=== PATIENT | female | born 2005 | race Hispanic/Latino ===

== ENCOUNTER 2024-04-08 11:16 | Emergency (ER) | payer SELFPAY ==
[~2024-04-08] VITALS: Ht 162.6 cm; Wt 47.2 kg
--- NOTE | 2024-04-08 12:20 | HMCIMG ---
US ABDOMINAL RUQ\E\LTD HISTORY: Adominal Pain TECHNIQUE: US ABDOMINAL RUQ\E\LTD. FINDINGS: LIVER: The liver demonstrates normal echogenicity without focal lesions. GALLBLADDER: No gallstone or wall thickening is seen. CBD: Measures up to 0.3cm. PANCREAS: The visualized pancreas appears within normal limits. RIGHT KIDNEY: measures 10.8cm in length. No hydronephrosis or calculi. IMPRESSION: No gallstone is seen.
[2024-04-08] MEDS: ondanSETRON 4MG INJ IVP ONE (13:10)
[2024-04-08] MEDS: 0.9%NACL 1000ML 1,000 ML IV ONE (13:10)
[2024-04-08] MEDS: PANTOPrazole 40 MG/VIAL IVP ONE (13:10)
[2024-04-08 13:31] LABS: BASOPHILS # (AUTO) 0.03 K/uL (0.00-0.20); BASOPHILS % (AUTO) 0.2 % (0.0-5.0); HEMATOCRIT 34.1 % (36-48); IMMATURE GRANULOCYTE ABSOLUTE 0.06 K/uL (0-1); LYMPHOCYTES # (AUTO) 0.5 K/uL (1.0-4.8); LYMPHOCYTES % (AUTO) 3.7 % (21.0-51.0); MEAN CORPUSCULAR HEMOGLOBIN 28.6 pg (27.0-33.0); MEAN CORPUSCULAR VOLUME 84.2 fL (80-100); MONOCYTES # (AUTO) 0.5 K/uL (0.1-1.0); MONOCYTES % (AUTO) 3.1 % (3.0-13.0); NEUTROPHILS # (AUTO) 13.6 K/uL (1.8-7.7); NEUTROPHILS % (AUTO) 92.6 % (40.0-77.0); PLATELET COUNT (AUTO) 306 K/uL (130-400); RED BLOOD CELL COUNT(AUTO) 4.05 MIL/uL (4.00-5.50); WHITE BLOOD COUNT (AUTO) 14.7 K/uL (4.8-10.8)
[2024-04-08 14:01] LABS: ALBUMIN 4.4 g/dL (3.5-5.0); BILIRUBIN,TOTAL 0.6 mg/dL (0.2-1.0); CREATININE 0.8 mg/dL (0.5-1.0); POTASSIUM 3.1 mmol/L (3.5-5.1); TOTAL PROTEIN, SERUM 7.7 g/dL (6.0-8.3)
[2024-04-08] MEDS: ketOROlac 30MG VIAL (30MG/ML) IVP ONE (14:19)
--- NOTE | 2024-04-08 14:43 | HMCIMG ---
CT ABDOMEN/PELVIS W/O CONTRAST INDICATION: abd pain TECHNIQUE: CT ABDOMEN/PELVIS W/O CONTRAST. Oral contrast was not given. Coronal and sagittal reformats were performed. CT was performed with one or more of the following dose reduction techniques: Automated exposure control, adjustment of the mA and/or kV according to the patient's size, or use of the iterative reconstruction technique. Comparison: None. FINDINGS: The noncontrast nature this study limits evaluation of abdominal viscera. No pulmonary consolidation or pleural effusion is seen. Liver and gallbladder are within normal limits. The spleen, pancreas, and adrenal glands are within normal limits. There is no hydronephrosis. Distended urinary bladder. Correlate for retention. Questionable left ovarian cyst. Small amount of free pelvic fluid is seen, nonspecific for patient's age. No bowel obstruction identified. Appendix is not clearly visualized limiting evaluation. Correlate clinically. Visualized aorta is normal in caliber. No acute osseous findings. IMPRESSION: 1. Distended urinary bladder. Correlate for retention. 2. Questionable small left ovarian cyst. Small amount of free pelvic fluid is seen, nonspecific for patient's age.
--- NOTE | 2024-04-08 14:53 | NUR ---
PATIENT PROVIDED UA CUP AND INSTRUCTED TO PROVIDE URINE SAMPLE. PATIENT STATES SHE DOES NOT FEEL THE NEED TO GO.
[2024-04-08 15:21] LABS: ADD UA MICROSCOPIC YES; APPEARANCE,URINE TURBID (CLEAR); BILIRUBIN,URINE NEGATIVE (NEGATIVE); COLOR,URINE LIGHT-YELLOW (YELLOW); GLUCOSE, URINE (UA) 70 mg/dL (NEGATIVE); KETONES,URINE 40 mg/dL (NEGATIVE); LEUKOCYTE ESTERASE ,URINE NEGATIVE Leu/uL (NEGATIVE); NITRATE,URINE NEGATIVE (NEGATIVE); OCCULT BLOOD,URINE NEGATIVE (NEGATIVE); PH,URINE 8.5 (5.0-8.0); PROTEIN,URINE 10 mg/dL (NEGATIVE); UROBILINOGEN,URINE 0.2 mg/dL (0.2-1.0)
[2024-04-08] MEDS: PoTASSium BIcarbonate/CIT AC 25 MEQ TABLET.EFF PO ONE (15:23)
[2024-04-08 15:27] LABS: AMPHET/METH SCREEN,URINE NEGATIVE (NEGATIVE); BARBITURATE SCREEN, URINE NEGATIVE (NEGATIVE); BENZODIAZEPINES SCREEN,URINE NEGATIVE (NEGATIVE); CANNABINOID SCREEN,URINE POSITIVE (NEGATIVE); COCAINE SCREEN,URINE NEGATIVE (NEGATIVE); OPIATE SCREEN,URINE NEGATIVE (NEGATIVE); PHENCYCLIDINE SCREEN,URINE NEGATIVE (NEGATIVE)
[2024-04-08 15:28] LABS: BACTERIA,URINE RARE /HPF (None Seen); MUCUS,URINE RARE LPF (None Seen); SQUAMOUS EPITHELIAL CELL,UR RARE /HPF (0-2); UNCLASSIFIED CRYSTAL 8 /HPF (None Seen); YEAST,URINE BUDDING MOD /HPF (None Seen)
[2024-04-08] MEDS ORDERED: ONDA-243 PO (15:43)
--- NOTE | 2024-04-08 15:43 | ERN ---
General Chief Complaint: Abdominal Pain Stated Complaint: STOMACH PAIN, NAUSEA, LIGHT HEADED Time Seen by MD: 11:18 Source: patient History of Present Illness Initial Comments PATIENT IS A 19-YEAR-OLD FEMALE COMING IN TO BE EVALUATED FOR NAUSEOUSNESS AND VOMITING. PER PATIENT SHE HAS BEEN HAVING EPIGASTRIC DISCOMFORT WELL NAUSEA AND VOMITING FOR ABOUT ONE DAY. NO FEVER NO CHILLS. Allergies: Coded Allergies: No Known Drug Allergies (Unverified Allergy, Unknown, 04/08/24) Past Medical History Past Medical History: No Pertinent History Past Surgical History: None Female( History) LMP: Mar 18, 2024 : 0 ROS Dictation CONSTITUTIONAL: NO CHILLS, NO FEVER, NO WEAKNESS, NO DIAPHORESIS, NO MALAISE. HEAD/FACE: NO SIGNS OF TRAUMA. EENT: NO EYE PAIN, NO BLURRED VISION, NO TEARING, NO DOUBLE VISION, NO EAR PAIN, NO EAR DISCHARGE, NO NOSE PAIN, NO NASAL CONGESTION, NO THROAT PAIN, NO THROAT SWELLING, NO MOUTH PAIN. RESPIRATORY: NO COUGH, NO ORTHOPNEA, NO SOB, NO STRIDOR, NO WHEEZING. CARDIOVASCULAR: NO CHEST PAIN, NO EDEMA, NO PALPITATIONS, NO SYNCOPE. GASTROINTESTINAL/ABDOMINAL: NO ABDOMINAL PAIN, NO CONSTIPATION, NO DIARRHEA, NAUSEA, VOMITING. GENITOURINARY: NO ABNORMAL DISCHARGE, NO DYSURIA, NO FREQUENT URINATION, NO HEMATURIA. NO COMPLAINTS OF PAIN IN THE GENITALS. MUSCULOSKELETAL: NO BACK PAIN, NO GOUT, NO JOINT PAIN, NO JOINT SWELLING, NO MUSCLE PAIN, NO MUSCLE STIFFNESS, NO NECK PAIN. INTEGUMENTARY: NO CHANGE IN COLOR, NO CHANGE IN HAIR/NAILS, NO DRYNESS, NO LESION, NO LUMPS, NO RASH. NEUROLOGICAL/PSYCH: NO ANXIETY, NOT DEPRESSED, NO EMOTIONAL PROBLEM, NO HEADAC HE, NO NUMBNESS, NO PRE-EXISTING DEFICIT, NO HISTORY OF SEIZURES, NO TREMORS, NO WEAKNESS. HEMATOLOGIC/LYMPHATIC: NOT ANEMIC, NO HISTORY OF BLOOD CLOTS, NO APPARENT BLEEDING, NO BRUISING, GLANDS NOT SWOLLEN. ALL SYSTEMS NEGATIVE, EXCEPT NOTED. Physical Exam Physical Exam Dictation VITAL SIGNS: REVIEWED. GENERAL APPEARANCE: ALERT, ORIENTED X3, NO ACUTE DISTRESS, OBESE. HEAD AND FACE: NON-TRAUMATIC. EYES: PERRL, PINK CONJUNCTIVAS, EYELID NO TRAUMA, ANTERIOR CHAMBER CLEAR. EARS: PINNAS INTACT AND NO SIGNS OF TRAUMA OR ERYTHEMA. EAR CANALS CLEAR AND NO DISCHARGE. TMS NO ERYTHEMA. NOSE: NO DISCHARGE, NO BLEEDING. OROPHARYNX: MOUTH NORMAL, TEETH NO CARIES, TONGUE PINK. PHARYNX CLEAR, NO ERYTHEMA. TONSILS NO EXUDATES, NO ABSCESSES NOTED. MUCOUS MEMBRANE MOIST. NECK: SUPPLE, NON-TENDER, NO THYROMEGALY, NO MASSES, NO JVD, NO BRUITS. BREAST: DEFERRED. CHEST: NO TENDERNESS, NO CREPITUS, NO PARADOXICAL MOVEMENT, NO RETRACTIONS. LUNGS: CLEAR, WELL-VENTILATED, SYMMETRIC, NO RALES, NO WHEEZING, NO RHONCHI, NO STRIDOR, GOOD BREATH SOUNDS BILATERALLY. HEART: REGULAR RATE, REGULAR RHYTHM, NO MURMUR, NO GALLOPS. VASCULAR: NO PERIPHERAL EDEMA. ABDOMEN: SOFT, POSITIVE BOWEL SOUNDS, NONDISTENDED, NO GUARDING, EPIGASTRIC TENDER, NO REBOUND, NO MASSES NO HEPATOMEGALY, NO SPLENOMEGALY, NO GONZALEZ'S SIGN, NO HERNIAS. RECTAL: DEFERRED. GENITAL: DEFERRED. NEUROLOGICAL: NORMAL SPEECH, GROSS MOTOR FUNCTION INTACT, GROSS SENSORY FUNCTION INTACT. MUSCULOSKELETAL: NECK NONTENDER, FULL RANGE OF MOTION, BACK NONTENDER, FULL RANGE OF MOTION. EXTREMITIES: NONTENDER, FULL RANGE OF MOTION. SKIN: COLOR PINK, DRY, NO TURGOR, NO RASH, NO LACERATIONS, NO ABRASIONS, NO CONTUSIONS. LYMPHATICS: DEFERRED. Results Laboratory and Microbiology Lab and Micro Result Laboratory Tests Test 04/08/24 13:11 04/08/24 15:10 White Blood Count 14.7 K/uL (4.8-10.8) H Red Blood Count 4.05 MIL/uL (4.00-5.50) Hemoglobin 11.6 g/dL (12.0-16.0) L Hematocrit 34.1 % (36-48) L Mean Corpuscular Volume 84.2 fL (80-100) Mean Corpuscular Hemoglobin 28.6 pg (27.0-33.0) Mean Corpuscular Hemoglobin Concent 34.0 g/dL (32.0-36.0) Red Cell Distribution Width 15.0 % (11.0-15.5) Platelet Count 306 K/uL (130-400) Mean Platelet Volume 9.0 fL (7.5-10.5) Immature Granulocyte % (Auto) 0.4 % (0-1) Neutrophils (%) (Auto) 92.6 % (40.0-77.0) H Lymphocytes (%) (Auto) 3.7 % (21.0-51.0) L Monocytes (%) (Auto) 3.1 % (3.0-13.0) Eosinophils (%) (Auto) 0.0 % (0.0-8.0) Basophils (%) (Auto) 0.2 % (0.0-5.0) Neutrophils # (Auto) 13.6 K/uL (1.8-7.7) H Lymphocytes # (Auto) 0.5 K/uL (1.0-4.8) L Monocytes # (Auto) 0.5 K/uL (0.1-1.0) Eosinophils # (Auto) 0.00 K/uL (0.00-0.70) Basophils # (Auto) 0.03 K/uL (0.00-0.20) Absolute Immature Granulocyte (auto 0.06 K/uL (0-1) Nucleated Red Blood Cells 0.0 % (0.0-0.19) Sodium Level 139 mmol/L (136-145) Potassium Level 3.1 mmol/L (3.5-5.1) L Chloride Level 102 mmol/L (101-111) Carbon Dioxide Level 25 mmol/L (21-32) Blood Urea Nitrogen 8 mg/dL (7-18) Creatinine 0.8 mg/dL (0.5-1.0) Glomerular Filtration Rate Calc 107 mL/min (>90) Random Glucose 140 mg/dL (70-105) H Total Calcium 9.4 mg/dL (8.5-10.1) Total Bilirubin 0.6 mg/dL (0.2-1.0) Aspartate Amino Transf (AST/SGOT) 19 U/L (10-37) Alanine Aminotransferase (ALT/SGPT) 17 U/L (12-78) Alkaline Phosphatase 61 U/L (50-136) Total Creatine Kinase 107 U/L (21-232) Troponin I High Sensitivity < 4 ng/L (4-50) L Total Protein 7.7 g/dL (6.0-8.3) Albumin 4.4 g/dL (3.5-5.0) Lipase 23 U/L (16-77) Human Chorionic Gonadotropin, Quant 0 mIU/mL (0-5) Urine Color LIGHT-YELLOW (YELLOW) Urine Appearance TURBID (CLEAR) Urine pH 8.5 (5.0-8.0) H Urine Specific [place] 1.016 (1.001-1.031) Urine Protein 10 mg/dL (NEGATIVE) H Urine Glucose (UA) 70 mg/dL (NEGATIVE) H Urine Ketones 40 mg/dL (NEGATIVE) H Urine Occult Blood NEGATIVE (NEGATIVE) Urine Nitrate NEGATIVE (NEGATIVE) Urine Bilirubin NEGATIVE mg/dL (NEGATIVE) Urine Urobilinogen 0.2 mg/dL (0.2-1.0) Urine Leukocyte Esterase NEGATIVE Lorenzo/uL Urine RBC 2-5 /HPF (0-1) H Urine WBC 11-25 /HPF (0-1) H Urine Squamous Epithelial Cells RARE /HPF (0-2) Urine Other Crystals (Auto) 8 /HPF (None Seen) Urine Bacteria RARE /HPF (None Seen) Urine Yeast MOD /HPF (None Seen) Urine Opiates Screen NEGATIVE (NEGATIVE) Urine Barbiturates Screen NEGATIVE (NEGATIVE) Urine Phencyclidine Screen NEGATIVE (NEGATIVE) Urine Amphetamines Screen NEGATIVE (NEGATIVE) Urine Benzodiazepines Screen NEGATIVE (NEGATIVE) Urine Cocaine Screen NEGATIVE (NEGATIVE) Urine Marijuana (THC) Screen POSITIVE (NEGATIVE) H Labs Reviewed?: Yes EKG/XRAY/US/CT/MRI Ultrasound Comment [address] [address] IMAGING REPORT Signed PATIENT: MARCIA BANG MR#: [id number] : 2005 SEX: F AGE: 19 LOCATION: [facility] ORDER 1145 STATUS: [facility] REPORT#: [id number] SERVICE 1144 REASON: Adominal Pain ORDERING PHYSICIAN: GARCIA NUNES MD PROCEDURE: ABDRUQLTD - US ABDOMINAL RUQ\LTD US ABDOMINAL RUQ\E\LTD HISTORY: Adominal Pain TECHNIQUE: US ABDOMINAL RUQ\E\LTD. FINDINGS: LIVER: The liver demonstrates normal echogenicity without focal lesions. GALLBLADDER: No gallstone or wall thickening is seen. CBD: Measures up to 0.3cm. PANCREAS: The visualized pancreas appears within normal limits. RIGHT KIDNEY: measures 10.8cm in length. No hydronephrosis or calculi. IMPRESSION: No gallstone is seen. DICTATED BY: FIDEL KILPATRICK MD DATE: 04/08/24 1217 ELECTRONICALLY SIGNED BY: FIDEL KILPATRICK MD DATE: 04/08/[address] Scan Comment [facility] [address] [place] [address] IMAGING REPORT Signed PATIENT: MARCIA BANG MR#: [id number] : 2005 SEX: F AGE: 19 LOCATION: [facility] ORDER 140 STATUS: [facility] REPORT#: [id number] SERVICE 140 REASON: abd pain ORDERING PHYSICIAN: GARCIA NUNES MD PROCEDURE: ABD PEL WO - CT ABDOMEN/PELVIS W/O CONTRAST CT ABDOMEN/PELVIS W/O CONTRAST INDICATION: abd pain TECHNIQUE: CT ABDOMEN/PELVIS W/O CONTRAST. Oral contrast was not given. Coronal and sagittal reformats were performed. CT was performed with one or more of the following dose reduction techniques: Automated exposure control, adjustment of the mA and/or kV according to the patient's size, or use of the iterative reconstruction technique. Comparison: None. FINDINGS: The noncontrast nature this study limits evaluation of abdominal viscera. No pulmonary consolidation or pleural effusion is seen. Liver and gallbladder are within normal limits. The spleen, pancreas, and adrenal glands are within normal limits. There is no hydronephrosis. Distended urinary bladder. Correlate for retention. Questionable left ovarian cyst. Small amount of free pelvic fluid is seen, nonspecific for patient's age. No bowel obstruction identified. Appendix is not clearly visualized limiting evaluation. Correlate clinically. Visualized aorta is normal in caliber. No acute osseous findings. IMPRESSION: 1. Distended urinary bladder. Correlate for retention. 2. Questionable small left ovarian cyst. Small amount of free pelvic fluid is seen, nonspecific for patient's age. DICTATED BY: FIDEL KILPATRICK MD DATE: 04/08/24 1439 ELECTRONICALLY SIGNED BY: FIDEL KILPATRICK MD DATE: 04/08/24 1443 MDM MDM: DIFFERENTIAL DIAGNOSIS: HYPEREMESIS CANNABIS, GASTRITIS, GERD, CHOLECYSTITIS, PANCREATITIS PATIENT IS A 19-YEAR-OLD FEMALE COMING IN TO BE EVALUATED FOR EPIGASTRIC PAIN AND NAUSEOUSNESS AND VOMITING. LABORATORY WORKUP MILDLY DECREASED POTASSIUM PLACED IN HIS POSITIVE FOR CANNABIS. I ADVISED PATIENT TO STAY AWAY FROM CANNABIS HAS A SKIN CAUSE HYPEREMESIS CANNABIS. I ADVISED HER DIET MODIFICATION. ED Course Orders Procedure Category Date Status Time Cbc With Differential LAB 04/08/24 In Process 11:44 Comprehensive LAB 04/08/24 Complete Metabolic Panel 11:44 Troponin I High LAB 04/08/24 Complete Sensitivity 11:44 Hcg,Quantitative LAB 04/08/24 Complete 11:44 Urinalysis Profile LAB 04/08/24 Complete 11:44 Us Abdominal Ruq\Ltd US 04/08/24 Resulted 11:44 0.9%Nacl 1000ml (Ns PHA 04/08/24 Complete 1000ml) 12:00 Ondansetron 4mg Inj PHA 04/08/24 Complete (Zofran 4mg Inj) 12:00 Pantoprazole 40mg Inj PHA 04/08/24 Complete (Protonix 40mg Inj 12:00 Creatine Kinase, Total LAB 04/08/24 Complete 11:44 Lipase LAB 04/08/24 Complete 11:44 Drug Screen Urine LAB 04/08/24 Complete 11:44 Ct Abdomen/Pelvis W/O CT 04/08/24 Resulted Contrast 14:03 Ketorolac PHA 04/08/24 Complete Tromethamine 30mg/Ml 14:30 Potassium Bicarb/Cit PHA 04/08/24 Complete Ac 25meq (K-Lyte Ta 15:30 Culture Urine CATARINA 04/08/24 Logged 15:30 Current Medications Medications (Trade) Dose Ordered Sig/Carlos Route PRN Reason Start Time Stop Time Status Last Admin Dose Admin Ketorolac Tromethamine (toRADol) 30 mg ONCE ONCE IVP 04/08/24 14:30 04/08/24 14:31 DC 04/08/24 14:19 Ondansetron HCl (zoFRAN 4MG INJ) 4 mg ONCE ONCE IVP 04/08/24 12:00 04/08/24 12:01 DC 04/08/24 13:10 Pantoprazole Sodium (PROTonix 40MG INJ) 40 mg ONCE ONCE IVP 04/08/24 12:00 04/08/24 12:01 DC 04/08/24 13:10 Potassium Bicarbonate (K-Lyte Tablet Eff 25 Meq Tablet.eff) 50 meq ONCE ONCE PO 04/08/24 15:30 04/08/24 15:31 DC 04/08/24 15:23 Sodium Chloride 1,000 ml @ 0 mls/hr ONCE ONCE IV 04/08/24 12:00 04/08/24 12:01 DC 04/08/24 13:10 Vital Signs Date Time Temp Pulse Resp B/P (MAP) Pulse Ox O2 Delivery O2 Flow Rate FiO2 04/08/24 14:40 97.2 67 18 127/69 97 Room Air* 0 21 04/08/24 13:12 97.9 65 20 123/65 98 Room Air* 0 21 04/08/24 11:43 98.8 86 18 107/85 100 Room Air 0 DX & DISP Disposition: Discharge Departure Impression: Primary Impression: Cannabis hyperemesis syndrome concurrent with and due to cannabis abuse Condition: Stable Scripts Ondansetron (Ondansetron Odt) 4 Mg Tab.rapdis 4 MG PO BID PRN for NAUSEA/VOMITING for 3 Days, #6 TAB Prov: GARCIA NUNES MD 04/08/24 Additional Instructions: FOLLOW-UP WITH PRIMARY CARE PROVIDER IN 1 TO 2 DAYS. TAKE MEDICATIONS DIRECTED HERE IN THE EMERGENCY ROOM. OKAY TO CONTINUE HOME MEDICATIONS UNLESS OTHERWISE DISCUSSED DURING YOUR VISIT IN THE EMERGENCY ROOM TODAY. RETURN TO Y OUR NEAREST EMERGENCY ROOM IF SYMPTOMS WORSEN OR IF THERE IS NO IMPROVEMENT. CALL 911 IF YOU NEED IMMEDIATE ASSISTANCE. TAKE TYLENOL [id number] NEEDED AND IF NO CONTRAINDICATIONS ARE PRESENT. INCREASE ORAL HYDRATION. A WOUND CULTURE OR URINE CULTURE WAS ORDERED HERE IN THE EMERGENCY ROOM DEPARTMENT PLEASE FOLLOW-UP WITH PRIMARY CARE PROVIDER AND ADVISE THEM TO GET REPEAT PORTS FROM OUR FACILITY. IF YOU HAD ANY NITHIN WRAP/SPLINTS THAT WERE APPLIED HERE, PLEASE DO NOT REMOVE THEM UNTIL YOU SEE YOUR PRIMARY CARE OR SPECIALTY. REFERRALS: Referrals: SELF,REFERRAL (PCP) HUGH GUZMAN MD Time of Disposition: 15:42 GARCIA NUNES MD Apr 08, 2024 15:43
[2024-04-08 15:59] VITALS: BP 121/67; PULSE 71; RESP 20; TEMP 97; O2SAT 97
== END 2024-04-08 16:09 | disposition home or self-care (01) ==
LOC: EDH 11:16
DX: F12.10 Cannabis abuse, uncomplicated (principal); R11.10 Vomiting, unspecified; R10.2 Pelvic and perineal pain; Z79.899 Other long term (current) drug therapy
CPT/HCPCS: 99285; 74176; 96374; 76705; 96375; 82550; 84484; 80053; 80305; 84702; 83690; 85025; 87086; 36415; 81001; J1885; J7030; J2405; J2470